=== PATIENT | male | born 1985 | race Caucasian/White ===

== ENCOUNTER 2020-01-25 17:47 | Emergency (ER) | payer SELFPAY ==
--- NOTE | 2020-01-25 18:28 | ER ---
Nurse's Notes [facility] Name: Roman Gonzalez Age: 34 yrs Sex: Male : 1985 Arrival Date: 01/25/2020 Time: 17:53 Bed 13 Private MD: Diagnosis: Cellulitis of left lower limb Presentation: 01/24 18:12 Chief complaint: Patient states: fishing last week, caught a hook in lateral left dm5 ankle, left ankle red and swollen. no open wound at this time. Coronavirus screen: Proceed with normal triage. Patient denies a cough. Patient denies shortness of breath or difficulty breathing. Patient denies measured and/or subjective temperature greater than 100.4F prior to today's visit. Patient denies travel on a cruise ship or to a country the [facility] currently lists as an affected area. Patient denies contact with known and/or suspected case of COVID-19. Initial Sepsis Screen: Does the patient meet any 2 criteria? No. Patient's initial sepsis screen is negative. Does the patient have a suspected source of infection? Yes: Skin breakdown/wound. Risk Assessment: Do you want to hurt yourself or someone else? Patient reports no desire to harm self or others. Onset of symptoms was January 18, 2020. 18:12 Acuity: HOOD 4 dm5 18:12 Method Of Arrival: Ambulatory 5 18:12 Ebola Screen: No symptoms or risks identified at this time. Triage Assessment: 18:45 Injury Description: Puncture sustained to left lateral ankle. Historical: - Allergies: 01/25 10:07 No Known Allergies; - Immunization history:: Adult Immunizations up to date. - Social history:: Smoking status: unknown. Screenin/04 18:45 Abuse screen: Denies threats or abuse. Nutritional screening: No deficits noted. Tuberculosis screening: No symptoms or risk factors identified. Fall Risk None identified. Assessment: 18:34 General: Appears uncomfortable, Behavior is calm, cooperative, appropriate for age. Pain: Complains of pain in lateral side of left foot, lateral side of left heel, left lateral malleolus, left medial malleolus, medial aspect of left heel and instep of left foot Pain currently is 5 out of 10 on a pain scale. Quality of pain is described as sharp, Pain began 1 week ago. Neuro: Level of Consciousness is awake, alert, Oriented to person, place, time, situation, Appropriate for age. Cardiovascular: Capillary refill < 3 seconds Patient's skin is warm and dry. Respiratory: Airway is patent Respiratory effort is even, unlabored. Derm: Skin is intact, is healthy with good turgor. Musculoskeletal: Swelling present in lateral side of left foot, lateral side of left heel and left lateral malleolus. ED Course: 17:53 Patient arrived in ED. fj1 17:53 Fabiana Swann FNP-C is [facility]. 17:53 Huseyin Boyer MD is Attending Physician. kb 18:14 Triage completed. dm5 18:27 Cheryl Ponce, RN is Primary Nurse. 18:45 Patient has correct armband on for positive identification. Bed in low position. Call light in reach. 18:45 No provider procedures requiring assistance completed. Patient did not have IV access ah during this emergency room visit. Administered Medications: 18:30 Drug: KeFLEX 500 mg Route: PO; 21:50 Follow up: Response: No adverse reaction 18:30 Drug: Doxycycline 100 mg Route: PO; 21:50 Follow up: Response: No adverse reaction Outcome: 18:28 Discharge ordered by MD. 18:45 Discharged to home ambulatory. 18:45 Condition: good 18:45 Discharge instructions given to patient, Instructed on discharge instructions, follow up and referral plans. Demonstrated understanding of instructions, follow-up care, medications, Prescriptions given X 2. 19:00 Patient left the ED. dmSherley Signatures: Fabiana Swann FNP-C FNP-Ckb Markwardt, Deana, RN RN [facility] Cheryl Ponce, RN RN
--- NOTE | 2020-01-25 18:29 | EDPHYS ---
Physician Documentation [facility] [place], [place] Name: Roman Gonzalez Age: 34 yrs Sex: Male : 1985 Arrival Date: 01/25/2020 Time: 17:53 Bed 13 Private MD: ED Physician Huseyin Boyer HPI: 01/24 18:26 This 34 yrs old Male presents to ER via Ambulatory with complaints of Foot kb Injury. 18:26 The patient presents with cellulitis of the left lateral ankle. Description: kb erythematous, swollen. Onset: The symptoms/episode began/occurred 1 week(s) ago. Possible cause(s): fish hook . Associated signs and symptoms: Pertinent positives: erythema, swelling, Pertinent negatives: discharge, drainage, foreign body sensation, fever, headache, nausea, shortness of breath, vomiting. Modifying factors: the symptoms are alleviated by nothing, the symptoms are aggravated by nothing. Severity of symptoms: At their worst the symptoms were moderate, in the emergency department the symptoms are unchanged. The patient has not experienced similar symptoms in the past. The patient has not recently seen a physician. Pt reports he was wake fishing and a hook caught his left ankle. States he pulled the hook out, then 2 days later the ankle and around it started swelling and getting red. States this happened a week ago and the swelling isn't getting better. . Historical: - Allergies: 01/25 10:07 No Known Allergies; ah - Immunization history:: Adult Immunizations up to date. - Social history:: Smoking status: unknown. ROS: 01/24 18:25 Constitutional: Negative for fever, chills, and weight loss, Cardiovascular: Negative kb for chest pain, palpitations, and edema, Respiratory: Negative for shortness of breath, cough, wheezing, and pleuritic chest pain, Abdomen/GI: Negative for abdominal pain, nausea, vomiting, diarrhea, and constipation, Back: Negative for injury and pain, MS/Extremity: Negative for injury and deformity, Neuro: Negative for headache, weakness, numbness, tingling, and seizure. Skin: Positive for erythema, swelling, of the left lateral ankle. Exam: 18:25 Constitutional: This is a well developed, well nourished patient who is awake, alert, kb and in no acute distress. Head/Face: Normocephalic, atraumatic. Chest/axilla: Normal chest wall appearance and motion. Nontender with no deformity. No lesions are appreciated. Cardiovascular: Regular rate and rhythm with a normal S1 and S2. No gallops, murmurs, or rubs. Normal PMI, no JVD. No pulse deficits. Respiratory: Lungs have equal breath sounds bilaterally, clear to auscultation and percussion. No rales, rhonchi or wheezes noted. No increased work of breathing, no retractions or nasal flaring. Abdomen/GI: Soft, non-tender, with normal bowel sounds. No distension or tympany. No guarding or rebound. No evidence of tenderness throughout. MS/ Extremity: Pulses equal, no cyanosis. Neurovascular intact. Full, normal range of motion. Neuro: Awake and alert, GCS 15, oriented to person, place, time, and situation. Cranial nerves II-XII grossly intact. Motor strength 5/5 in all extremities. Sensory grossly intact. Cerebellar exam normal. Normal gait. 18:25 Skin: cellulitis, that is moderate, on the left lateral ankle. MDM: 18:09 Patient medically screened. kb 18:24 Data reviewed: vital signs, nurses notes. Data interpreted: Pulse oximetry: on room air kb is 100 %. Interpretation: normal. Counseling: I had a detailed discussion with the patient and/or guardian regarding: the historical points, exam findings, and any diagnostic results supporting the discharge/admit diagnosis, the need for outpatient follow up, a family practitioner, to return to the emergency department if symptoms worsen or persist or if there are any questions or concerns that arise at home. Administered Medications: 18:30 Drug: KeFLEX 500 mg Route: PO; 21:50 Follow up: Response: No adverse reaction 18:30 Drug: Doxycycline 100 mg Route: PO; 21:50 Follow up: Response: No adverse reaction Disposition: 01/25/20 18:28 Discharged to Home. Impression: Cellulitis of left lower limb. - Condition is Stable. - Discharge Instructions: Cellulitis, Adult, [id number]. - Prescriptions for Keflex 500 mg Oral Capsule - take 1 capsule by ORAL route every 8 hours for 10 days; 30 capsule. Doxycycline Hyclate 100 mg Oral Tablet - take 1 tablet by ORAL route once daily; 10 tablet. - Medication Reconciliation Form, Thank You Letter, Antibiotic Education, Prescription Opioid Use form. - Follow up: Emergency Department; When: As needed; Reason: Worsening of condition. Follow up: Private Physician; When: 2 - 3 days; Reason: Recheck today's complaints, Continuance of care, Re-evaluation by your physician. Signatures: Fabiana Swann FNP-C SENIOR BACK END [employer] DEVELOPER-Ckb Solange Medrano RN RN dm5 Cheryl Ponce RN RN Corrections: (The following items were deleted from the chart) 19:00 18:28 01/25/2020 18:28 Discharged to Home. Impression: Cellulitis of left lower limb. dm5 Condition is Stable. Forms are Medication Reconciliation Form, Thank You Letter, Antibiotic Education, Prescription Opioid Use. Follow up: Emergency Department; When: As needed; Reason: Worsening of condition. Follow up: Private Physician; When: 2 - 3 days; Reason: Recheck today's complaints, Continuance of care, Re-evaluation by your physician. kb
[2020-01-25] MEDS ORDERED: DOXYCYCLINE 100 MG CAP PO ONE ×2 (18:38→18:39)
[2020-01-25] MEDS ORDERED: CEPHALEXIN 250 MG CAP ONE (18:38)
== END 2020-01-25 19:00 | disposition home or self-care (01) ==
LOC: ER 17:47
DX: L03.116 Cellulitis of left lower limb (principal)
CPT/HCPCS: 99283

== ENCOUNTER 2020-02-01 21:48 | Emergency (ER) | payer SELFPAY ==
[2020-02-02] MEDS ORDERED: TETANUS & DIPHTHERIA TOX,ADULT 0.5 ML VIAL ONE (00:13)
--- NOTE | 2020-02-02 00:38 | EDPHYS ---
Physician Documentation [facility] Name: Roman Gonzalez Age: 34 yrs Sex: Male : 1985 Arrival Date: 02/01/2020 Time: 21:52 Bed 20 Private MD: ED Physician Trell Oshea HPI: 02/01 00:16 This 34 yrs old Male presents to ER via Ambulatory with complaints of Foot tw4 Swelling. 00:16 The patient presents with an injury, pain. The complaints affect the left foot. tw4 Context: The problem was sustained outdoors, resulted from a heavy object falling, Mechanism of Injury:. Onset: The symptoms/episode began/occurred today. Modifying factors: The symptoms are alleviated by nothing, the symptoms are aggravated by nothing. Severity of symptoms: At their worst the symptoms were moderate, in the emergency department the symptoms are unchanged. The patient has not experienced similar symptoms in the past. Historical: - Allergies: 01/31 22:02 No Known Allergies; ca1 - Home Meds: 22:02 None [Active]; ca1 - PMHx: 22:02 None; ca1 - PSHx: 22:02 None; ca1 - Immunization history:: Adult Immunizations up to date, Last tetanus immunization: unknown. - Social history:: Smoking status: Patient reports the use of cigarette tobacco products, smokes one-half pack cigarettes per day. ROS: 02/01 00:16 MS/extremity: Positive for of the left lateral malleolus, Negative for abrasion, tw4 decreased range of motion, deformity, ecchymosis, erythema, laceration. Constitutional: Negative for fever, chills, and weight loss, Eyes: Negative for injury, pain, redness, and discharge, Cardiovascular: Negative for chest pain, palpitations, and edema, Respiratory: Negative for shortness of breath, cough, wheezing, and pleuritic chest pain, Abdomen/GI: Negative for abdominal pain, nausea, vomiting, diarrhea, and constipation, Back: Negative for injury and pain, Skin: Negative for injury, rash, and discoloration. Neuro: Negative for headache, weakness, numbness, tingling, and seizure. Exam: 00:16 Constitutional: This is a well developed, well nourished patient who is awake, alert, tw4 and in no acute distress. Head/Face: Normocephalic, atraumatic. Neck: Trachea midline, no thyromegaly or masses palpated, and no cervical lymphadenopathy. Supple, full range of motion without nuchal rigidity, or vertebral point tenderness. No Meningismus. Chest/axilla: Normal chest wall appearance and motion. Nontender with no deformity. No lesions are appreciated. Cardiovascular: Regular rate and rhythm with a normal S1 and S2. No gallops, murmurs, or rubs. Normal PMI, no JVD. No pulse deficits. Respiratory: Lungs have equal breath sounds bilaterally, clear to auscultation and percussion. No rales, rhonchi or wheezes noted. No increased work of breathing, no retractions or nasal flaring. Abdomen/GI: Soft, non-tender, with normal bowel sounds. No distension or tympany. No guarding or rebound. No evidence of tenderness throughout. MS/ Extremity: Pulses equal, no cyanosis. Neurovascular intact. Full, normal range of motion. Neuro: Awake and alert, GCS 15, oriented to person, place, time, and situation. Cranial nerves II-XII grossly intact. Motor strength 5/5 in all extremities. Sensory grossly intact. Cerebellar exam normal. Normal gait. Vital Signs: 01/31 21:59 BP 135 / 93; Pulse 104; Resp 18 S; Temp 98.1(TE); Pulse Ox 98% on R/A; Weight 83.91 kg ca1 (R); Height 5 ft. 11 in. (180.34 cm) (R); 21:59 Body Mass Index 25.80 (83.91 kg, 180.34 cm) ca1 MDM: 23:57 Patient medically screened. tw4 02/01 00:35 Differential diagnosis: fracture, sprain. Data reviewed: vital signs, nurses notes. tw4 Data reviewed: radiologic studies, plain films. Data interpreted: Pulse oximetry: Interpretation: normal. Test interpretation: by ED physician or midlevel provider: plain radiologic studies. Counseling: I had a detailed discussion with the patient and/or guardian regarding: the historical points, exam findings, and any diagnostic results supporting the discharge/admit diagnosis. Special discussion: I discussed with the patient/guardian in detail that at this point there is no indication for admission to the hospital. It is understood, however, that if the symptoms persist or worsen the patient needs to return immediately for re-evaluation. 02/01 00:02 Order name: Ankle Left 3 View XRAY 01/31 22:04 Order name: O2 Per Protocol; Complete Time: 00:03 Administered Medications: 00:09 Drug: Tetanus-Diphtheria Toxoid Adult 0.5 ml {[employer]: [employer]. Exp: jd3 09/06/2021. Lot #: [id number]. } Route: IM; Site: left deltoid; 01:00 Follow up: Response: No adverse reaction j Disposition: 02/02/20 00:37 Discharged to Home. Impression: Contusion of left foot. - Condition is Stable. - Discharge Instructions: Contusion. - Prescriptions for Ibuprofen 800 mg Oral Tablet - take 1 tablet by ORAL route every 8 hours As needed take with food; 30 tablet. Tramadol 50 mg Oral Tablet - take 1 tablet by ORAL route every 8 hours as needed; 12 tablet. - Medication Reconciliation Form, Thank You Letter, Antibiotic Education, Prescription Opioid Use form. - Follow up: Private Physician; When: Upon discharge from the Emergency Department; Reason: If symptoms return, Recheck today's complaints, Continuance of care, Re-evaluation by your physician. Follow up: Wilber Martinez MD; When: Upon discharge from the Emergency Department; Reason: Recheck today's complaints, Continuance of care, Re-evaluation by your physician. Follow up: Diomedes Rivera DPM; When: Upon discharge from the Emergency Department; Reason: Recheck today's complaints, Continuance of care, Re-evaluation by your physician. - Problem is an ongoing problem. - Symptoms are unchanged. Signatures: Dispatcher [employer] Lyle Roblero RN RN jd3 Trell Oshea MD MD tw4 Estephania Irizarry RN RN ca1 Corrections: (The following items were deleted from the chart) 00:02 01/31 22:04 Droplet/Contact Precautions ordered. 02/01 00:01/31 22:04 Labs collected and sent ordered. 02/01 00:02 01/31 22:04 [facility] [phone]/ ordered. [facility] 02/01 00:03 07/11 22:04 Document PUI# ordered. tw4 jd3 02/01 00:08 01/31 22:05 CORONAVIRUS+MR.LAB.BRZ ordered. EDWI EDWI 02/01 00:08 01/31 22:05 Influenza Screen (A \T\ B)+BA.LAB.BRZ ordered. EDWI EDWI 02/01 00:08 01/31 22:05 Group A Streptococcus Rapid Sc+BA.LAB.BRZ ordered. [facility] 02/01 01:00 00:37 02/02/2020 00:37 Discharged to Home. Impression: Contusion of left foot. jd3 Condition is Stable. Forms are Medication Reconciliation Form, Thank You Letter, Antibiotic Education, Prescription Opioid Use. Follow up: Private Physician; When: Upon discharge from the Emergency Department; Reason: If symptoms return, Recheck today's complaints, Continuance of care, Re-evaluation by your physician. Follow up: Wilber Martinez; When: Upon discharge from the Emergency Department; Reason: Recheck today's complaints, Continuance of care, Re-evaluation by your physician. Follow up: Diomedes Rivera; When: Upon discharge from the Emergency Department; Reason: Recheck today's complaints, Continuance of care, Re-evaluation by your physician. Problem is an ongoing problem. Symptoms are unchanged. tw4
--- NOTE | 2020-02-02 00:38 | ER ---
Nurse's Notes [facility] Name: Roman Gonzalez Age: 34 yrs Sex: Male : 1985 Arrival Date: 02/01/2020 Time: 21:52 Bed 20 Private MD: Diagnosis: Contusion of left foot Presentation: 01/31 21:59 Chief complaint: Chief complaint: Patient states: Was here last week for a fish hook on ca1 my L ankle. Was prescribed antibiotics, still on it. Right now, R ankle is still swollen and red.. Coronavirus screen: Proceed with normal triage. Patient denies a cough. Patient denies shortness of breath or difficulty breathing. Patient denies measured and/or subjective temperature greater than 100.4F prior to today's visit. Patient denies travel on a cruise ship or to a country the [facility] currently lists as an affected area. Patient denies contact with known and/or suspected case of COVID-19. Ebola Screen: Patient negative for fever greater than or equal to 101.5 degrees Fahrenheit, and additional compatible Ebola Virus Disease symptoms Patient denies exposure to infectious person. Patient denies travel to an Ebola-affected area in the 21 days before illness onset. No symptoms or risks identified at this time. Initial Sepsis Screen: Does the patient meet any 2 criteria? No. Patient's initial sepsis screen is negative. Does the patient have a suspected source of infection? No. Patient's initial sepsis screen is negative. Risk Assessment: Do you want to hurt yourself or someone else? Patient reports no desire to harm self or others. Onset of symptoms was February 01, 2020. 21:59 Method Of Arrival: Ambulatory ca1 21:59 Acuity: HOOD 4 ca1 Historical: - Allergies: 22:02 No Known Allergies; ca1 - Home Meds: 22:02 None [Active]; ca1 - PMHx: 22:02 None; ca1 - PSHx: 22:02 None; ca1 - Immunization history:: Adult Immunizations up to date, Last tetanus immunization: unknown. - Social history:: Smoking status: Patient reports the use of cigarette tobacco products, smokes one-half pack cigarettes per day. Screenin/12 00:59 Abuse screen: Denies threats or abuse. Nutritional screening: No deficits noted. jd3 Tuberculosis screening: No symptoms or risk factors identified. Fall Risk Ambulatory Aid- None/Bed Rest/Nurse Assist (0 pts). Gait- Normal/Bed Rest/Wheelchair (0 pts) Mental Status- Oriented to own ability (0 pts). Total Greenberg Fall Scale indicates No Risk (0-24 pts). Assessment: 00:00 General: Appears in no apparent distress. uncomfortable, Behavior is calm, cooperative, jd3 appropriate for age. Pain: Complains of pain in left ankle Quality of pain is described as aching. Neuro: Level of Consciousness is awake, alert, obeys commands, Oriented to person, place, time, situation. Cardiovascular: Capillary refill < 3 seconds Patient's skin is warm and dry. Respiratory: Airway is patent Respiratory effort is even, unlabored, Respiratory pattern is regular, symmetrical, Denies cough, shortness of breath. GI: No signs and/or symptoms were reported involving the gastrointestinal system. : No signs and/or symptoms were reported regarding the genitourinary system. EENT: No signs and/or symptoms were reported regarding the EENT system. Derm: Skin is intact, Skin is dry, Skin is normal, Skin temperature is warm. Musculoskeletal: Circulation, motion, and sensation intact. Range of motion: intact in all extremities, Swelling present in left ankle. 00:59 Reassessment: Patient appears in no apparent distress at this time. Patient and/or jd3 family updated on plan of care and expected duration. Pain level reassessed. Patient is alert, oriented x 3, equal unlabored respirations, skin warm/dry/pink. Vital Signs: 01/31 21:59 BP 135 / 93; Pulse 104; Resp 18 S; Temp 98.1(TE); Pulse Ox 98% on R/A; Weight 83.91 kg ca1 (R); Height 5 ft. 11 in. (180.34 cm) (R); 21:59 Body Mass Index 25.80 (83.91 kg, 180.34 cm) ca1 ED Course: 21:52 Patient arrived in ED. ds1 21:54 Trell Oshea MD is Attending Physician. tw4 22:01 Triage completed. ca1 22:02 Arm band placed on right wrist. ca1 07 00:00 Lyle Larsen RN is Primary Nurse. jd3 00:23 Ankle Left 3 View XRAY In Process Unspecified. EDMS 00:37 Wilber Martinez MD is Referral Physician. tw4 00:37 Diomedes Rivera DPM is Referral Physician. tw4 01:00 Patient has correct armband on for positive identification. Bed in low position. Call jd3 light in reach. Side rails up X 1. Pulse ox on. NIBP on. 01:00 No provider procedures requiring assistance completed. Patient did not have IV access jd3 during this emergency room visit. Administered Medications: 00:09 Drug: Tetanus-Diphtheria Toxoid Adult 0.5 ml {[employer]: [employer]. Exp: jd3 09/06/2021. Lot #: [id number]. } Route: IM; Site: left deltoid; 01:00 Follow up: Response: No adverse reaction jd3 Outcome: 00:37 Discharge ordered by . tw4 01:00 Discharged to home ambulatory. jd3 01:00 Condition: stable 01:00 Discharge instructions given to patient, Instructed on discharge instructions, follow up and referral plans. medication usage, Demonstrated understanding of instructions, follow-up care, medications, Prescriptions given X 2. 01:00 Patient left the ED. jd3 Signatures: Dispatcher [employer] EDWV Keila Puentes ds1 Lyle Larsen RN RN jd3 Trell Oshea MD MD tw4 Estephania Irizarry, RN RN ca1
[2020-02-02 01:09] VITALS: BP 135/93; TEMP 98.1; O2SAT 98
--- NOTE | 2020-02-02 11:51 | RAD REPORT ---
EXAM DESCRIPTION: RAD - Ankle Left 3 View -02/02/2020 12:23 am CLINICAL HISTORY: Left ankle pain FINDINGS: No fracture or dislocation is seen. Soft tissue swelling. No bony destructive lesions seen
== END 2020-02-02 01:00 | disposition home or self-care (01) ==
LOC: ER 21:48
DX: S90.32XA Contusion of left foot, initial encounter (principal); W22.8XXA Striking against or struck by other objects, initial encounter; Y93.9 Activity, unspecified; Y92.89 Other specified places as the place of occurrence of the external cause; F17.210 Nicotine dependence, cigarettes, uncomplicated; Z23 Encounter for immunization
CPT/HCPCS: 90471; 90714; 99284